=== PATIENT | female | born 1995 | race Hispanic/Latino ===

== ENCOUNTER 2016-11-13 16:47 | Outpatient (CLI) | payer MEDICAID ==
[2016-11-13] MEDS ORDERED: LACTATED RINGERS 500 ML IV ONE ×2 (18:36→18:38)
[2016-11-13] MEDS ORDERED: LACTATED RINGERS 1,000 ML ONE (18:36)
[2016-11-13 18:54] VITALS: BP 110/55
[2016-11-13 19:22] LABS: Bilirubin,Urine NEG (Negative); Blood,Urine NEG (Negative); Ketones,Urine NEG (Negative); Leukocyte Esterase,Urine NEG (Negative); Mucus,Urine 1+ /HPF; Nitrite,Urine NEG (Negative); Protein,Urine <15 mg/dL mg/dL (Negative); Urobilinogen,Urine < 2.0 mg/dL (<2.0); WBC,Urine < 1.0 /HPF (0.0-6.0)
== END 2016-11-13 21:00 | disposition home or self-care (01) ==
LOC: TRG 16:47
PROVIDERS: ATTEND Obstetrics & Gynecology
DX: Z34.93 Encounter for supervision of normal pregnancy, unspecified, third trimester (principal); Z3A.30 30 weeks gestation of pregnancy
CPT/HCPCS: 81001; 96360; J7120

== ENCOUNTER 2016-12-27 01:10 | Outpatient (CLI) | payer MEDICAID ==
[2016-12-27] MEDS ORDERED: LACTATED RINGERS 500 ML IV ONE (01:46)
[2016-12-27 01:59] VITALS: BP 119/72
== END 2016-12-27 02:39 | disposition home or self-care (01) ==
LOC: TRG 01:10
PROVIDERS: ATTEND Obstetrics & Gynecology
DX: O47.03 False labor before 37 completed weeks of gestation, third trimester (principal); Z3A.36 36 weeks gestation of pregnancy
CPT/HCPCS: 59025; J7120

== ENCOUNTER 2017-01-17 09:07 | Outpatient (CLI) | payer MEDICAID ==
[2017-01-17 09:25] VITALS: BP 125/64
== END 2017-01-17 11:16 | disposition home or self-care (01) ==
LOC: TRG 09:07
PROVIDERS: ATTEND Obstetrics & Gynecology
DX: O47.1 False labor at or after 37 completed weeks of gestation (principal); Z3A.39 39 weeks gestation of pregnancy
CPT/HCPCS: 59025